=== PATIENT | female | born 2000 | race Caucasian/White ===

== ENCOUNTER 2022-07-02 23:09 | Emergency (ER) | payer SELFPAY ==
[~2022-07-02] VITALS: Ht 142.2 cm; Wt 38.6 kg
[2022-07-03 00:18] LABS: HEMATOCRIT 41.2 % (31.2-41.9); MEAN CORPUSCULAR HEMOGLOBIN 31.6 uug (24.7-32.8); PLATELET COUNT (AUTO) 288 K/uL (179-408)
[2022-07-03 00:22] LABS: *URINE HCG, QUAL NEG (NEGATIVE)
[2022-07-03 00:25] LABS: *BILIRUBIN,URIN NEGATIVE (NEGATIVE); *CLARITY,URINE CLEAR (CLEAR); *COLOR,URINE YELLOW (YELLOW); *KETONES,URINE NEGATIVE (NEGATIVE); *UROBILINOGEN,URINE 0.2 E.U./dl (NORMAL); LEUKOCYTE ESTERASE ,URINE NEGATIVE (NEGATIVE); NITRITE, URINE NEGATIVE (NEGATIVE); UGLUCOSE NEGATIVE (NEGATIVE)
[2022-07-03 00:27] LABS: *BLOOD, URINE TRACE (NEGATIVE)
[2022-07-03 00:36] LABS: CARBON DIOXIDE 26 mmol/L (21-32); CHLORIDE 105 mmol/L (98-107); CREATININE 0.5 mg/dL (0.6-1.3); GLUCOSE 119 mg/dL (74-106); POTASSIUM 3.1 mmol/L (3.5-5.1); UREA NITROGEN, BLOOD 14 mg/dL (7-18)
--- NOTE | 2022-07-03 00:36 | NUR ---
welding technician Neida @ bedside conducting ultrasound.
[2022-07-03 00:41] LABS: ALANINE AMINOTRANSFERASE 26 U/L (14-59); ALKALINE PHOSPHATASE 129 U/L (50-136); ASPARTATE AMINOTRANSFERASE 10 U/L (15-37); BILIRUBIN,TOTAL 0.3 mg/dL (0.2-1.0); LIPASE 141 U/L (73-393); TOTAL PROTEIN, SERUM 7.5 g/dL (6.4-8.2)
[2022-07-03] MEDS ORDERED: SIMETHICONE 80 MG TAB.CHEW PO ONE (01:00)
[2022-07-03] MEDS ORDERED: DICYCLOMINE HCL 20 MG TABLET PO SCH (01:00)
[2022-07-03] MEDS ORDERED: SIMETHICONE 80 MG TAB.CHEW ONE (01:11)
[2022-07-03] MEDS ORDERED: DICYCLOMINE HCL 20 MG TABLET ONE (01:11)
--- NOTE | 2022-07-03 01:35 | NUR ---
Patient was given pudding and able to tolerate eating.
--- NOTE | 2022-07-03 01:58 | NUR ---
Patient discharged to home in stable condition. Written and verbal after care instructions given. Patient verbalizes understanding of instructions. Stressed follow up or return to ER for worsening s/s. Patient walked out wiht steady gait accompainied by mother.
[2022-07-03 02:24] LABS: BACTERIA,URINE FEW /HPF (NONE SEEN); SQUAMOUS EPITHELIAL CELL,UR FEW /HPF (NONE SEEN); WBC,URINE 0-3 /HPF (0-3)
[2022-07-03 02:36] VITALS: BP 102/66
== END 2022-07-03 02:37 | disposition home or self-care (01) ==
LOC: ER 23:09
DX: R10.31 Right lower quadrant pain (principal); R11.0 Nausea
CPT/HCPCS: 36415; 83605; 83690; 84703; 85025; A4663